=== PATIENT | male | born 1940 | race Caucasian/White ===

== ENCOUNTER 2016-11-05 16:59 | Emergency (ER) | payer OTHER ==
[~2016-11-05] VITALS: Ht 170.2 cm; Wt 83.2 kg
[2016-11-05 17:05] VITALS: BP 175/80; PULSE 83; RESP 18; O2SAT 96
--- NOTE | 2016-11-05 17:16 | ED.REPORT ---
HPI-General Illness Date of Service Nov 05, 2016 ED Provider: Darius Roblero MD A 76 year old male with a history of hypertension, diabetes, NE and three stents is brought to the ED due to chest pain. The pain is an intermittent "short, sharp pain" that has been intermittently present since 14:00. The last episode was at 16:00. The pain was 3/10 nonradiating and substernal, described as a "twinge" that the pt initially suspected was gas pain. This is different from the pain he experienced during his NE. The pt denies shortness of breath, headache, fever, chills, vision changes, focal weakness, abdominal pain, diarrhea, constipation, hematochezia or hematuria. He has not had a stress test in approximately ten years. At this time, he is completely pain-free and has no complaints whatsoever. Nursing Notes Stated Complaint: CHEST PAIN Chief Complaint: Chest Pain Nursing Notes Reviewed: Yes Allergies: Coded Allergies: No Known Allergies (Unverified , 11/05/16) General Time Seen by MD: 17:15 Chief Complaint Chest pain Hx Obtained From: Patient, EMS Arrived By: Ambulance Sudden in Onset?: No Onset Occurred: 1 - 4 hours ago Symptom Duration: Intermittent Location: : Chest Quality: Sharp Radiation: : Does not radiate Severity: Current: No pain currently Severity: Maximum: Pain level 3 out of 10 Recent Healthcare: No recent hospitalization Similar Sx Previous: No Past Medical History Past Medical History Notes: last stress test in 2006 Past Medical History NE hypertension diabetes Past Surgical History three stents 2002 hands Family History father of NE at 73 Smoking History Unknown if Ever Smoker Social History Alcohol Use: "Social" Drug Use: Denies drug use Other Social History: Good social support, Ambulatory Status Independent Review of Systems Full Review of Systems Constitutional: Denies: Chills, Fever Respiratory: Denies: Non-productive cough, Shortness of breath Cardiovascular: Reports: Chest pain GI: Denies: Abdominal pain, Constipation, Diarrhea, Hematochezia, Nausea, Vomiting Male: Denies Hematuria Musculoskeletal: Denies: Back pain, Neck pain Skin: Denies Rash Neurologic: Denies: Focal weakness, Headache, Vision change Complete sys rev & neg: except as marked. Physical Exam Constitutional: Well-developed, well-nourished. Not diaphoretic. Head: Normocephalic and atraumatic. Mouth/Throat: Oropharynx is clear and moist. No oropharyngeal exudate. Eyes: EOM are normal. Pupils are equal, round, and reactive to light. Neck: Supple, no tracheal deviation. Cardiovascular: Normal rate, regular rhythm. Equal and intact distal pulses throughout. Pulmonary/Chest: Effort normal and breath sounds normal. No respiratory distress. Abdominal: Soft. No distension. There is no tenderness, rebound, or guarding. Bowel sounds present. Musculoskeletal: Range of motion grossly intact, moving all extremities. No edema or tenderness appreciated. Neurological: AOx3. Grossly nonfocal exam. Strength and sensation intact and equal to bilateral upper and lower extremities. Skin: Warm and dry, no rashes or pallor appreciated. Psychiatric: Appropriate mood and affect. Behavior appears normal. Vital Signs Vital Signs Date Time Temp Pulse Resp B/P Pulse Ox O2 Delivery O2 Flow Rate FiO2 11/05/16 23:18 62 16 136/62 91 Room Air 11/05/16 21:48 66 16 151/69 96 Room Air 11/05/16 21:07 64 18 142/71 95 Room Air 11/05/16 19:17 77 18 139/80 92 Room Air 11/05/16 17:05 36.9 83 18 175/80 96 Room Air Initial VS: Reviewed Interpretation & Diagnostics Lab Results Interpretation Result Diagram: 11/05/16 1833 11/05/16 1833 Test 11/05/16 18:33 11/05/16 19:02 11/05/16 22:26 White Blood Count 6.9th/mm3 (3.8-10.1) Red Blood Count 4.91mil/mm3 (4.40-5.80) Hemoglobin 15.2g/dL (13.8-17.2) Hematocrit 43.0% (41.0-50.0) Mean Corpuscular Volume 87.6fL (81-100) Mean Corpuscular Hemoglobin 31.0pg (27.0-35.0) Mean Corpuscular Hemoglobin Concent 35.3% (32.0-37.0) Red Cell Distribution Width 13.3% (12.3-15.4) Platelet Count 149bil/L (150-400) Neutrophils (%) (Auto) 65.7% (40-74) Lymphocytes (%) (Auto) 19.9% (14-46) Monocytes (%) (Auto) 11.2% (4-12) Eosinophils (%) (Auto) 2.8% (0-5) Basophils (%) (Auto) 0.1% (0-3) Sodium Level 139mEq/L (134-144) Potassium Level 3.5mEq/L (3.5-5.2) Chloride Level 94mEq/L (97-108) Carbon Dioxide Level 25mmol/L (18-29) Blood Urea Nitrogen 24mg/dL (8-27) Creatinine 0.93mg/dL (0.76-1.27) Estimat Glomerular Filtration Rate 84mL/min (>59) Glucose Level 141mg/dL (60-99) Calcium Level 9.7mg/dL (8.5-10.1) Magnesium Level 2.1mg/dL (1.6-2.6) Total Bilirubin 0.5mg/dL (0.0-1.2) Aspartate Amino Transf (AST/SGOT) 18U/L (0-50) Alanine Aminotransferase (ALT/SGPT) 19U/L (0-44) Alkaline Phosphatase 49U/L (25-160) Total Protein 7.7g/dL (6.4-8.4) Albumin 4.6g/dL (3.4-5.0) Lipase 22U/L (13-60) Lactic Acid Level 1.1mmol/L (0.4-2.0) Troponin T 0.010ug/L (0.0-0.011) ECG Interpretation ECG Interpretation: normal sinus rhythm with a rate of 89 ventricular premature complex inferior infarct, old Time: 17:12 Interpreted by: ED physician X-Ray Chest Interpretation Chest Xray Interpretation: IMPRESSION: Source of chest pain is not seen. Dictated by: Juan Jack M.D. on 11/05/2016 at 18:59 Approved by: Juan Jack M.D. on 11/05/2016 at 18:59 Interpretation / Wet Read by: Interpret - Radiologist Re-Eval/Medical Decision Med Decision/Clinical Course In summary, 76-year-old male with a history of coronary artery disease presenting to the ED for evaluation of chest pain earlier today, since completely resolved. Differential includes ACS, PE, pneumothorax, aortic dissection, cardiac tamponade, esophageal rupture. EKG with no acute ischemic changes appreciated. Troponin negative 2. He is completely chest pain-free at this time. His pain does not feel like his previous NE at all and states that it feels like when he had reflux - states that the pain went away when he burped. Low risk by Well's criteria; highly doubt PE. Chest pain not radiating through to the back, not described as tearing, no widened mediastinum , no pain at this time - aortic dissection very unlikely. No JVD, muffled heart tones, or hypotension. No evidence of pneumothorax on exam or x-ray. No history of vomiting. CBC and CMP grossly within normal limits. Lactic acid 1.1. Initially mildly hypertensive upon arrival, however this is improved. I discussed admission for cardiology evaluation, likely stress test with the patient at length. He does have a concerning history, however he is completely chest pain-free at this time and his symptoms earlier today did not seem to be typical of what his previous angina has been. He expressed a desire to be discharged home. He states that he can get a stress test tomorrow and if he cannot he will come back to the emergency department. Given this, I do not think it is unreasonable to discharge him home with very careful return precautions, follow-up tomorrow as discussed. I again reinforced the importance of close follow-up and the risk of having a major adverse cardiac event in the relatively near future. Patient verbalized understanding. Patient agreeable to the plan as stated, no further questions. Time of Eval: 21:25 Patient Status: Condition improved Re-Evaluation/Progress Note: Pt rechecked, who is comfortable and without pain. Options for both admission and discharge are discussed. The pt opts for discharge with close follow up. The diagnosis and plan for discharge pending normal troponin are discussed. The pt understands and agrees with the plan. All questions are addressed at this time. Counseled Regarding: Diagnosis, Lab results, Need for follow-up, When/why to return to ED Discharge & Departure Primary Impression: Chest pain Chest pain type: unspecified Qualified Code: R07.9 - Chest pain, unspecified Disposition: Home Discharge Condition All VS Reviewed: Yes Condition: Stable Patient Instructions: Chest Pain (ED) Additional Instructions: Thank you for allowing us to be a part of your care. Call your primary care physician tomorrow to arrange a follow up appointment in the next day. You will need a stress test. Return to the emergency department if you develop any new or worsening symptoms such as chest pain, shortness of breath, abdominal pain, vomiting or if there is anything else of concern to you. Referrals: [facility] Scribe Attestation Portions of this note were transcribed by Evon Wood. I, Dr. Roblero personally performed the history, physical exam and medical decision-making; I reviewed and confirmed the accuracy of the information in the transcribed note. copies to: [facility] Darius Roblero MD Nov 05, 2016 17:16 EVON WOOD Nov 05, 2016 17:25
[2016-11-05 18:38] LABS: BASOPHILS % (AUTO) 0.1 % (0-3); EOSINOPHILS % (AUTO) 2.8 % (0-5); MONOCYTES % (AUTO) 11.2 % (4-12); Mean Corpuscular Volume 87.6 fL (81-100); NEUTROPHILS % (AUTO) 65.7 % (40-74); Platelet Count 149 bil/L (150-400)
--- NOTE | 2016-11-05 19:01 | DRSVH ---
PROCEDURE: X-RAY CHEST ONE VIEW, PORTABLE ([id number]) INDICATIONS: cp TECHNIQUE: One view of the chest was acquired. COMPARISON: None. FINDINGS: Surgical changes and devices: None. Lungs and pleura: No pleural effusions or pneumothorax. Lungs are clear. Mediastinum: Mediastinal contours appear normal. Heart size is normal. Bones and chest wall: No suspicious bony lesions. Overlying soft tissues appear unremarkable. IMPRESSION: Source of chest pain is not seen. Dictated by: Juan Jack M.D. on 11/05/2016 at 18:59 Approved by: Juan Jack M.D. on 11/05/2016 at 18:59
[2016-11-05 19:13] LABS: Lipase 22 U/L (13-60); Magnesium 2.1 mg/dL (1.6-2.6)
[2016-11-05 19:16] LABS: TROPONIN T < 0.010 ug/L (0.0-0.011)
[2016-11-05 19:17] VITALS: BP 139/80; PULSE 77; RESP 18; O2SAT 92
[2016-11-05 21:07] VITALS: BP 142/71; PULSE 64; RESP 18; O2SAT 95
[2016-11-05 21:48] VITALS: BP 151/69; PULSE 66; RESP 16; O2SAT 96
[2016-11-05 23:18] VITALS: BP 136/62; PULSE 62; RESP 16; O2SAT 91
== END 2016-11-05 23:19 | disposition home or self-care (01) ==
LOC: EDBD 16:59 → SED 16:59
DX: R07.9 Chest pain, unspecified (principal); I10 Essential (primary) hypertension; E11.9 Type 2 diabetes mellitus without complications; I25.2 Old myocardial infarction; Z95.5 Presence of coronary angioplasty implant and graft